=== PATIENT | male | born 1990 | race Caucasian/White ===

== ENCOUNTER 2017-05-07 10:23 | Emergency (ER) | payer SELFPAY ==
--- NOTE | 2017-05-07 11:45 | RAD ---
3 VIEWS RIGHT FOOT: Date: 05/07/17 HISTORY: Dropped at 5 gallon bucket on right foot yesterday, pain with walking, swelling of right foot. FINDINGS: There are degenerative changes present at the first metatarsophalangeal joint. There is corticated os seous irregularity involving the talar neck on the lateral examination suggesting sequelae of degener ative change and/or old fracture. There is no definite acute fracture or evidence of dislocation seen . IMPRESSION: No displaced fracture or evidence of dislocation noted. POS: [facility]
== END 2017-05-07 10:57 | disposition home or self-care (01) ==
LOC: BURERS 10:23
DX: S90.31XA Contusion of right foot, initial encounter (principal); Z87.891 Personal history of nicotine dependence; W22.8XXA Striking against or struck by other objects, initial encounter

== ENCOUNTER 2017-07-03 08:40 | Emergency (ER) | payer SELFPAY ==
[2017-07-03] MEDS ORDERED: Oseltamivir 75 MG CAP ONE (09:17)
[2017-07-03] MEDS ORDERED: Ondansetron ODT 4 MG TAB ONE (09:17)
== END 2017-07-03 09:20 | disposition home or self-care (01) ==
LOC: BURERS 08:40
DX: J11.1 Influenza due to unidentified influenza virus with other respiratory manifestations (principal); R19.7 Diarrhea, unspecified; Z87.891 Personal history of nicotine dependence
CPT/HCPCS: 99283; Q0162